=== PATIENT | female | born 1945 | race Native Hawaiian/Other Pacific Islander ===

== ENCOUNTER 2022-11-22 11:09 | Outpatient (CLI) | payer OTHER | END 2022-11-22 19:23 | disposition home or self-care (01) | LOC: RAD 11:09 | PROVIDERS: ATTEND Nurse Practitioner Family | DX: R06.02 Shortness of breath (principal); R60.1 Generalized edema; R63.5 Abnormal weight gain ==

== ENCOUNTER 2023-05-29 09:11 | Outpatient (CLI) | payer OTHER | END 2023-05-29 19:03 | disposition home or self-care (01) | LOC: RAD 09:11 | PROVIDERS: ATTEND Nurse Practitioner Family | DX: M81.0 Age-related osteoporosis without current pathological fracture (principal) ==